=== PATIENT | female | born 1990 | race African-American/Black ===

== ENCOUNTER 2022-04-15 16:53 | Inpatient (IN) ==
[2022-04-15 17:39] LABS: Bacteria,Urine Occasional /HPF (Few); Bilirubin,Urine Negative (Negative); Blood, Urine Negative (Negative); Glucose,Urine (UA) Negative (Negative); Ketones,Urine Negative (Negative); Nitrite,Urine Negative (Negative); Protein,Urine Negative (Negative); RBC,Urine <1 /HPF (0-4); Squamous Epithelial Cell,Urine Occasional /HPF (0-10); Urine Appearance Clear (Clear); Urine Color Yellow (Yellow); Urine pH 6.5 (4.5-8.0)
[2022-04-15] MEDS ORDERED: MEPERIDINE 50 MG/1 ML VIAL IV PRN (18:00)
[2022-04-15] MEDS ORDERED: BUTORPHANOL 2 MG/ML VIAL IV PRN (18:00)
[2022-04-15] MEDS ORDERED: ONDANSETRON 4 MG/2 ML VIAL IV PRN ×2 (18:00→23:52)
[2022-04-15] MEDS ORDERED: miSOPROStoL 200 MCG TABLET RECTAL PRN (18:00)
[2022-04-15] MEDS ORDERED: OXYTOCIN/LR 20 UNIT/1,000 ML BAG IV ONE ×2 (18:00→23:52)
[2022-04-15] MEDS ORDERED: TRANEXAMIC ACID 1,000 MG in SODIUM CHLORIDE 0.9% 100 ML IV PRN (18:00)
[2022-04-15] MEDS ORDERED: CARBOPROST TROMETHAMINE 250 MCG/ML AMP IM PRN (18:00)
[2022-04-15] MEDS ORDERED: METHYLERGONOVINE 0.2 MG/1 ML AMP IM PRN (18:00)
[2022-04-15 18:39] LABS: Albumin 2.8 G/DL (3.4-5.0); Bilirubin,Total 1.1 MG/DL (0.20-1.00); Calcium 8.8 MG/DL (8.5-10.1); Osmolality,Calculated 277.3 MOS/KG (273-304); Potassium 3.5 MMOL/L (3.5-5.1); Total Protein 6.5 G/DL (6.4-8.2)
[2022-04-15 18:40] LABS: Basophils % 0.5 % (0.0-0.8); Hematocrit 28.8 VOL% (35.7-47.0); Hemoglobin 7.9 GM/DL (12.0-16.0); Immature Granulocytes % 0.3 %; Immature Granulocytes Absolute 0.02 #; Lymphocytes # 1.1 10*3/uL (1.4-4.0); Lymphocytes % 18.3 % (21.3-54.2); Mean Corpuscular HGB Conc 27.4 GM/DL (32-36); Mean Corpuscular Volume 65.3 FL (87-102); Mean Platelet Volume 10.3 FL (9.6-12.0); Monocytes # 0.6 10*3/uL (0.11-0.8); Monocytes % 9.3 % (1.7-12.7); NRBC # 0.06 10*3/uL; Neutrophils % 71.6 % (38.7-73.9); Platelet Count 293 T/CUMM (130-400); Red Blood Count 4.41 MC/CUMM (3.8-5.5); Red Cell Distribution Width 21.5 % (9.3-17.3); White Blood Count 6.2 T/CUMM (4-12)
[2022-04-15] MEDS: LACTATED RINGERS 1,000 ML IV SCH ×2 (19:13→21:21)
[2022-04-15] MEDS ORDERED: OXYTOCIN/LR 30 UNIT/1,000 ML BAG IV ONE (22:24)
[2022-04-15] MEDS ORDERED: DIPH/TET/ACEL PERT BOOSTER VACCINE 0.5 ML VIAL IM ONE (23:52)
[2022-04-15] MEDS ORDERED: BISACODYL 10 MG SUPP RECTAL PRN (23:52)
[2022-04-15] MEDS ORDERED: RHO(D) IMMUNE GLOBULIN 300 MCG SYRINGE IM ONE (23:52)
[2022-04-15] MEDS ORDERED: WITCH HAZEL PADS 100/JAR TOP PRN (23:52)
[2022-04-15] MEDS ORDERED: HYDROCORTISONE 2.5% RECTAL CREAM 30 GM TUBE TOP PRN (23:52)
[2022-04-15] MEDS ORDERED: BENZOCAINE 20%/MENTHOL 0.5% SPRAY 56 GM CAN TOP PRN (23:52)
[2022-04-15] MEDS ORDERED: LANOLIN 50% CREAM 0.3 OZ TUBE TOP PRN (23:52)
[2022-04-15] MEDS ORDERED: MEASLES/MUMPS/RUBELLA VACCINE 0.5 ML VIAL SUBCUT ONE (23:52)
[2022-04-15] MEDS ORDERED: oxyCODONE/ACETAMINOPHEN 5-325 MG TABLET PO PRN (23:52)
[2022-04-15] MEDS ORDERED: ACETAMINOPHEN 325 MG TABLET PO PRN (23:52)
[2022-04-15 23:55] LABS: Cord Venous Blood HCO3 23.1 MMOL/L; Cord Venous Blood PCO2 33.6 MMHG; Cord Venous Blood PO2 38.1
[2022-04-16] MEDS: IBUPROFEN 800 MG TABLET PO PRN ×2 (00:54→23:50)
[2022-04-16] MEDS ORDERED: OXYTOCIN/LR 20 UNIT/1,000 ML BAG IV SCH (01:00)
[2022-04-16] MEDS: oxyCODONE/ACETAMINOPHEN 5-325 MG TABLET PO PRN ×2 (01:38→19:07)
[2022-04-16 06:23] LABS: Basophils % 0.4 % (0.0-0.8); Hemoglobin 7.7 GM/DL (12.0-16.0); Immature Granulocytes % 0.4 %; Immature Granulocytes Absolute 0.04 #; Lymphocytes # 1.3 10*3/uL (1.4-4.0); Lymphocytes % 11.6 % (21.3-54.2); Mean Corpuscular HGB Conc 27.4 GM/DL (32-36); Mean Corpuscular Volume 64.6 FL (87-102); Monocytes # 0.9 10*3/uL (0.11-0.8); Monocytes % 8.2 % (1.7-12.7); NRBC # 0.05 10*3/uL; Neutrophils % 79.4 % (38.7-73.9); Platelet Count 283 T/CUMM (130-400); Red Blood Count 4.35 MC/CUMM (3.8-5.5); Red Cell Distribution Width 21.4 % (9.3-17.3); White Blood Count 11.3 T/CUMM (4-12)
[2022-04-16 06:30] LABS: Hematocrit 28.1 VOL% (35.7-47.0)
[2022-04-16 06:31] LABS: Anisocytosis 1+; Burr Cells Few; Ovalocytes Few; Platelet Estimate Normal; Tear Drop Cells Few
[2022-04-16] MEDS: MULTIVITAMIN (PRENATAL) TABLET PO SCH (11:15)
[2022-04-16] MEDS: DOCUSATE SODIUM 100 MG CAPSULE PO SCH ×2 (11:15→20:39)
[2022-04-16] MEDS: FERROUS SULFATE 325 MG TABLET PO SCH ×2 (11:16→20:40)
[2022-04-17 07:27] VITALS: BP 102/58
[2022-04-17] MEDS: MULTIVITAMIN (PRENATAL) TABLET PO SCH (09:52)
[2022-04-17] MEDS: DOCUSATE SODIUM 100 MG CAPSULE PO SCH (09:53)
[2022-04-17] MEDS: FERROUS SULFATE 325 MG TABLET PO SCH (09:53)
== END 2022-04-17 13:35 | disposition home or self-care (01) | DRG 560 ==
LOC: N.LDOUT 16:53 → N.LD 16:57 → N.OB 04-16 08:28
PROVIDERS: ADMIT Obstetrics & Gynecology; ATTEND Obstetrics & Gynecology